=== PATIENT | male | born 1945 | race Caucasian/White ===

== ENCOUNTER 2019-11-02 05:05 | Day surgery (SDC) ==
--- NOTE | 2019-10-26 13:46 | EKG Report ---
Test Performed on : 10/26/2019 1:41:23 PM Test Reason : PAT Blood Pressure : / mmHG Vent. Rate : 091 BPM Atrial Rate : 092 BPM P-R Int : 170 ms QRS Dur : 088 ms QT Int : 334 ms P-R-T Axes : 087 088 074 degrees QTc Int : 410 ms Normal sinus rhythm. with sinus arrhythmia. Normal ECG When compared with ECG of 01-MAY-2017 04:24, No significant change was found Confirmed by Nelson RICHARDSON, Austin Colunga ([id number]) on 10/28/2019 7:01:04 PM
[2019-10-26 14:06] LABS: HEMATOCRIT 48.1 % (42.0-52.0); HEMOGLOBIN 15.7 g/dL (14.0-18.0); MCH 30.5 PG (27-31); MCHC 32.6 g/dL (33-37); MCV 93.6 FL (81-99); MPV 8.4 FL (7.4-10.4); RBC 5.14 XMIL (4.7-6.1); RDW 13.5 % (11.5-14.5); WBC 6.77 X1000 (4.8-10.8)
[2019-10-26 14:16] LABS: INR 0.95; PROTIME 12.7 Seconds (11.0-16.0)
[2019-10-26 14:17] LABS: PTT 36.4 Seconds (22.3-41.8)
[2019-10-26 14:57] LABS: AGAP 12; BUN 9 mg/dL (8-22); CALCIUM 9.3 mg/dL (8.8-10.2); CHLORIDE 99 mmol/L (98-107); COSMO 274; CREATININE 0.9 mg/dL (0.7-1.2); ESTIMATED GFR > 60; GLUCOSE 94 mg/dL (70-104); POTASSIUM 4.2 mmol/L (3.5-5.1); SODIUM 138 mmol/L (136-145); TCO2 27 mmol/L (25-35)
--- NOTE | 2019-11-01 18:23 | HISTORY AND PHYSICAL ---
HISTORY OF PRESENT ILLNESS: A 74-year-old male with clinical stage T1c [place] 6 prostate adenocarcinoma and elevated PSA. He presented with PSA elevation up to 17.4. He had 4K score which revealed PSA increased to 22 and risk of 88%. He underwent prostate biopsy on 09/14/2019. His volume was 42 mL. Pathology revealed [place] 6 prostate adenocarcinoma in 2/12 cores in the right base with 30 to 40 percent cores involved. He had bone scan on 09/26/2019 revealing no evidence of bony metastases. He had CT abdomen and pelvis on 09/26/2019 showing no evidence of pelvic lymphadenopathy. He was counseled on treatment options and want to proceed with robotic prostatectomy with pelvic lymph node dissection. PAST MEDICAL HISTORY: Hyperlipidemia, heart murmur, prostate cancer. PAST SURGICAL HISTORY: Back surgery, hemorrhoid surgery. MEDICATIONS: Atorvastatin, Flomax, Remeron. ALLERGIES: No known drug allergies. FAMILY HISTORY: Negative for malignancies. SOCIAL HISTORY: Smokes half pack per day, denies alcohol or illicit drug use. PHYSICAL EXAMINATION: GENERAL: No acute distress. HEENT: Normocephalic, atraumatic. CARDIOVASCULAR: Regular rhythm. PULMONARY: Bilateral breath sounds. ABDOMEN: Soft, nontender, nondistended. BACK: No CVA tenderness. : Normal phallus. Meatus is patent. Testes descended bilaterally. NEUROLOGIC: Alert and oriented x3. ASSESSMENT/PLAN: A 74-year-old male with intermediate risk prostate adenocarcinoma who desires robotic prostatectomy with pelvic lymph node dissection and laparoscopic urethral suspension. I discussed risks of the procedure with the patient including but not limited to bleeding, infection, injury to adjacent organs such as bowel, blood vessels, lymphatic fluid leakage, inability to remove all the cancer, conversion to open approach, long-term complications such as scar tissue and need for additional interventions. We also discussed long-term urinary incontinence and risk of erectile dysfunction with need for surgical interventions to correct either. Mr. San was understanding wants to proceed. PLAN: Robotic-assisted laparoscopic prostatectomy with bilateral pelvic lymph node dissection and laparoscopic urethral suspension. cc: Alonzo Pastor MD
[2019-11-02] MEDS ORDERED: KEFZOL 1 GM/D5W 2 GM/100 ML IVPB ONE (05:41)
[2019-11-02] MEDS ORDERED: LR 1,000 ML ONE ×2 (05:41→07:44)
[2019-11-02] MEDS ORDERED: DIPRIVAN 1% ONE (06:07)
[2019-11-02] MEDS ORDERED: FENTANYL ONE (06:07)
[2019-11-02] MEDS ORDERED: ZEMURON ONE ×2 (06:13→07:09)
[2019-11-02] MEDS ORDERED: ZOFRAN ONE (06:13)
[2019-11-02] MEDS ORDERED: QUELICIN (DOSE) ONE (06:13)
[2019-11-02] MEDS ORDERED: MARCAINE 0.25% PF/EPI 1:200,000 ONE (06:48)
[2019-11-02] MEDS ORDERED: OFIRMEV 1000 MG/ISOTONIC SOLN 1,000 MG/100 ML BOTTLE ONE (06:56)
[2019-11-02] MEDS ORDERED: DECADRON ONE (06:56)
[2019-11-02] MEDS ORDERED: ROBINUL ONE (07:39)
[2019-11-02] MEDS ORDERED: EPHEDRINE ONE (07:39)
[2019-11-02] MEDS ORDERED: B & O 16A SUPP ONE (07:44)
[2019-11-02] MEDS ORDERED: MARCAINE 0.25% PF/EPI 1:200,000 INJ ONE (07:45)
[2019-11-02 08:05] LABS: URINE SOURCE CATH
[2019-11-02 08:09] LABS: BILIRUBIN URINE NEGATIVE (NEGATIVE); BLOOD URINE NEGATIVE (NEGATIVE); COLOR YELLOW; GLUCOSE URINE NEGATIVE (NEGATIVE); KETONE URINE NEGATIVE (NEGATIVE); LEUKOCYTES URINE NEGATIVE (NEGATIVE); NITRITE URINE NEGATIVE (NEGATIVE); PROTEIN URINE NEGATIVE (NEGATIVE); SP GRAVITY URINE 1.013; TURBIDITY URINE HAZY (CLEAR); UROBILINOGEN URINE NORMAL (NORMAL)
[2019-11-02 08:10] LABS: UR EPITHELIAL CELLS <10 /HPF (<10); URINE BACTERIA NEGATIVE /HPF; URINE RBC <10 /HPF (<10); URINE WBC <10 /HPF (<10)
[2019-11-02] MEDS ORDERED: BRIDION ONE (08:55)
[2019-11-02] MEDS ORDERED: D5 1/2 NS 1,000 ML ONE (09:26)
[2019-11-02] MEDS ORDERED: MORPHINE IV PRN (09:30)
[2019-11-02] MEDS ORDERED: OFIRMEV 1000 MG/ISOTONIC SOLN 1,000 MG/100 ML BOTTLE IV PRN (09:30)
[2019-11-02] MEDS ORDERED: NORCO-10 PO PRN (09:30)
[2019-11-02] MEDS ORDERED: PHENERGAN PO PRN (09:30)
[2019-11-02] MEDS ORDERED: PHENERGAN IV PRN (09:30)
[2019-11-02] MEDS ORDERED: NORCO-5 PO PRN (09:30)
[2019-11-02] MEDS ORDERED: BENADRYL IV PRN (09:30)
[2019-11-02] MEDS ORDERED: B & O 15A SUPP PR PRN (09:30)
[2019-11-02] MEDS ORDERED: PHENERGAN PR PRN (09:30)
[2019-11-02] MEDS ORDERED: BENADRYL LIQUID PO PRN (09:30)
[2019-11-02] MEDS ORDERED: DILAUDID IV PRN (09:30)
[2019-11-02] MEDS ORDERED: SODIUM CHLORIDE 0.9% INJ PRN (09:30)
[2019-11-02] MEDS ORDERED: LABETALOL IV PRN (09:30)
[2019-11-02] MEDS ORDERED: ZOFRAN IV PRN (09:30)
[2019-11-02] MEDS ORDERED: DITROPAN PO PRN (09:30)
[2019-11-02] MEDS ORDERED: PRECEDEX ONE (09:35)
[2019-11-02] MEDS: D5 1/2 NS 1,000 ML IV SCH (11:05)
[2019-11-02] MEDS: NORCO-7.5 PO PRN ×2 (12:06→17:12)
[2019-11-02] MEDS: KEFZOL 1 GM/D5W 1 GM/50 ML IVPB IV SCH ×2 (17:15→23:35)
[2019-11-02] MEDS: COLACE PO SCH (23:35)
[2019-11-03] MEDS: NORCO-7.5 PO PRN (04:20)
[2019-11-03] MEDS: D5 1/2 NS 1,000 ML IV SCH ×2 (05:23→06:57)
[2019-11-03] MEDS: KEFZOL 1 GM/D5W 1 GM/50 ML IVPB IV SCH (06:15)
[2019-11-03 08:03] LABS: HEMATOCRIT 45.1 % (42.0-52.0); HEMOGLOBIN 14.8 g/dL (14.0-18.0); MCHC 32.8 g/dL (33-37); MCV 94.4 FL (81-99); RBC 4.78 XMIL (4.7-6.1); RDW 13.1 % (11.5-14.5); WBC 12.11 X1000 (4.8-10.8)
[2019-11-03 08:13] LABS: AGAP 9; BUN 9 mg/dL (8-22); CALCIUM 9.1 mg/dL (8.8-10.2); CHLORIDE 97 mmol/L (98-107); COSMO 269; CREATININE 0.9 mg/dL (0.7-1.2); ESTIMATED GFR > 60; GLUCOSE 99 mg/dL (70-104); POTASSIUM 3.9 mmol/L (3.5-5.1); SODIUM 135 mmol/L (136-145); TCO2 29 mmol/L (25-35)
[2019-11-03] MEDS: COLACE PO SCH (08:50)
[2019-11-03 11:33] VITALS: BP 104/71
--- NOTE | 2019-12-04 12:14 | OPERATIVE NOTE ---
PROCEDURE DATE: 11/02/2019 SURGEON: Dr. Alonzo Pastor. PREOPERATIVE DIAGNOSIS: Prostate cancer, prostate-specific antigen elevation up to 22. POSTOPERATIVE DIAGNOSIS: Prostate cancer, prostate-specific antigen elevation up to 22. PROCEDURE NAME: Robotic-assisted laparoscopic prostatectomy with bilateral pelvic lymph node dissection and laparoscopic urethral suspension. INDICATIONS: A 74-year-old male who presented to clinic with PSA elevation up to 17. He had 4K score and repeat PSA of 22. He had a biopsy in August of 2019. His pathology revealed [place] 6 prostate adenocarcinoma. He had unremarkable bone scan and CT scan. He wants to proceed with robotic prostatectomy. Given his high-risk disease with such PSA elevation, he was counseled on pelvic lymph node dissection. FINDINGS: Watertight vesicourethral anastomosis at 240 mL. DESCRIPTION OF PROCEDURE: After obtaining informed consent, the patient was brought to the operating room. Perioperative antibiotics and general endotracheal anesthesia were administered. He was placed in the lithotomy position, prepped and draped in a sterile fashion. An 18-Italian Escobar catheter was introduced and the bladder was drained. A small stab incision was made in the left upper quadrant and the Veress needle was introduced, connected to a saline-filled syringe. We confirmed positive drop test, followed by aspiration of fluid from the syringe without evidence of blood or GI contents. The pneumoperitoneum pressure was increased to 15 mmHg. Trocar sizes were demarcated in a standard fashion. Next, 10 mL of Marcaine with epinephrine were instilled at the trocar sites. Bovie electrocautery was used to incise the skin. A 12 mm trocar was introduced above his umbilicus. Robotic camera was introduced and the peritoneal cavity was inspected. He did not have any evidence of adhesions. He was placed in Trendelenburg position and the rest of the trocars were introduced under direct vision. The robot was docked. The peritoneum was incised 3 cm above the rectum. Right vas deferens was identified, dissected, and transected, followed by identification and isolation of right seminal vesicle. Left vas deferens was identified, dissected, and transected, followed by identification and isolation of left seminal vesicle. Denonvilliers' fascia was incised and a perirectal plane was developed posteriorly. We dissected anterior to vas deferens to the level of the prostate. I incised lateral to medial umbilical ligament bilaterally, dropping the bladder. Fat was cleared off of endopelvic fascia. The fascia was incised along the contour of the prostate toward its apex. Puboprostatic ligaments were divided sharply. The superficial dorsal venous complex was controlled with bipolar electrocautery. Deep dorsal venous complex was controlled with a figure- of-eight suture of 0 V-Loc with anterior periosteal elevation. Bladder neck was identified by tugging on the Escobar with the balloon in place. Monopolar cautery was used to incise the bladder neck. Once the Escobar became visible, it was advanced into the field and placed on anterior traction. Plane was developed between the bladder and the prostate after the bladder neck was incised circumferentially. Eventually, the vas deferens and seminal vessels came into the view. They were brought into the field and placed on anterior traction as well. Hem-O-Lock clips were used to reflect the neurovascular bundles posterolaterally on both sides. The prostate was dissected away from the rectum. Periurethral shoulders were transected and the urethra was sharply divided. The prostate was delivered and placed into EndoCatch bag. Inspection of operative field revealed no evidence of active bleeding. Attention was turned to the right pelvic lymph node packet. I identified the right external iliac vein and grasped the lymphatic package and dissected it off meticulously with the following boundaries: External iliac vein up to its confluence with common iliac vein superiorly, pelvic sidewall laterally, perivesical fat medially, and obturator vessels and nerve posteriorly. Please note that the obturator nerve was spared. Pneumoperitoneal pressure was decreased to 3 mmHg. There was no evidence of bleeding. Surgicel SNoW hemostatic agent was placed into the lymphadenectomy bed. We then performed the same thing on the left side with identical margins. Pneumoperitoneal pressure was decreased to 3 mmHg without evidence of bleeding and Surgicel SNoW hemostatic agent was placed into the lymphadenectomy bed as well. A 3-0 V-Loc suture was used to reapproximate perivesical and periurethral fascia, allowing us to take the pressure or tension off of future anastomosis. Those sutures were preserved for laparoscopic urethral suspension. Formal vesicourethral anastomosis was then performed with a 3 V- Loc suture in a clockwise and counterclockwise fashion and cross-tying the sutures. A fresh 18- Italian Escobar catheter was introduced and the vesicourethral anastomosis was tested with 240 mL of sterile fluid. There was no evidence of leakage. We then performed laparoscopic urethral suspension by using previously placed Tyree sutures and threading the needles through periosteum lateral to the mid pubis. Once that was achieved, pneumoperitoneal pressure was decreased to 3 mmHg. The entire operative field was inspected without evidence of bleeding or injury to bowels. We then undocked the robot. Suprapubic incision was extended. Bag was removed containing the prostate gland and pelvic lymph nodes. Then #1 PDS was used to close the supraumbilical fascia in a running style. Then a 0 Vicryl suture was used to close the left upper quadrant support assistant 12 mm trocar fascia in a [id number] fashion and 4-0 Monocryl sutures were used for subcuticular closure, followed by application of Covidien adhesive agent. The patient was extubated and taken to the PACU for further recovery. ESTIMATED BLOOD LOSS: 100 mL. COMPLICATIONS: None. SPECIMENS: 1. Prostate gland. 2. Pelvic lymph nodes. DRAINS: An 18-Italian Escobar catheter. DISPOSITION: To the PACU and subsequently the floor for observation. cc: Alonzo Pastor MD
== END 2019-11-03 11:56 | disposition home or self-care (01) ==
LOC: 4N 05:05 → OR 05:05
PROVIDERS: ATTEND Urology